=== PATIENT | male | born 1970 | race Caucasian/White ===

== ENCOUNTER 2018-11-15 04:32 | Observation (INO) | payer OTHER ==
[2018-11-15 05:07] LABS: ABSOLUTE BASOPHILS # (AUTO) 0.1 10^3/uL (0.0-0.2); ABSOLUTE EOSINOPHILS # (AUTO) 0.2 10^3/uL (0.0-0.6); ABSOLUTE LYMPHOCYTES (AUTO) 5.3 10^3/uL (0.5-4.7); ABSOLUTE MONOCYTES (AUTO) 1.6 10^3/uL (0.1-1.4); ABSOLUTE NEUT (AUTO) 6.9 10^3/uL (1.7-8.2); BASOPHILS % (AUTO) 0.7 % (0-2); EOSINOPHILS % (AUTO) 1.4 % (0-6); HEMATOCRIT 35.3 % (37.9-51.0); HEMOGLOBIN 12.2 g/dL (13.5-17.0); LYMPHOCYTES % (AUTO) 37.7 % (13-45); MEAN CORPUSCULAR HEMOGLOBIN 31.6 pg (27.0-33.4); MEAN CORPUSCULAR HGB CONC 34.6 g/dL (32.0-36.0); MEAN CORPUSCULAR VOLUME 91 fl (80-97); MONOCYTES % (AUTO) 11.6 % (3-13); PLATELET COUNT 427 10^3/uL (150-450); RED BLOOD COUNT 3.86 10^6/uL (4.35-5.55); RED CELL DISTRIBUTION WIDTH 13.7 % (11.5-14.0); SEGMENTED NEUTROPHILS % (AUTO) 48.6 % (42-78); TOTAL CELLS COUNTED % (AUTO) 100 %; WHITE BLOOD COUNT 14.2 10^3/uL (4.0-10.5)
[2018-11-15] MEDS ORDERED: NORMAL SALINE 1000 ML 1,000 ML IV ONE ×2 (05:33→10:10)
[2018-11-15 05:42] LABS: INTERNATIONAL RATION (INR) 1.01; PROTHROMBIN TIME 13.8 SEC (11.4-15.4)
[2018-11-15 05:43] LABS: PARTIAL THROMBOPLASTIN TIME 30.8 SEC (23.5-35.8)
[2018-11-15 05:45] LABS: ALANINE AMINOTRANSFERASE 34 U/L (21-72); ALBUMIN 3.5 g/dL (3.5-5.0); ALKALINE PHOSPHATASE 40 U/L (38-126); ANION GAP 9 (5-19); ASPARTATE AMINO TRANSFERASE 45 U/L (17-59); BILIRUBIN,DIRECT 0.3 mg/dL (0.0-0.4); BILIRUBIN,TOTAL 0.4 mg/dL (0.2-1.3); BLOOD UREA NITROGEN 18 mg/dL (7-20); CALCIUM 8.4 mg/dL (8.4-10.2); CARBON DIOXIDE 25 mmol/L (22-30); CHLORIDE 107 mmol/L (98-107); GLUCOSE 125 mg/dL (75-110); POTASSIUM 3.4 mmol/L (3.6-5.0); SODIUM 140.5 mmol/L (137-145)
--- NOTE | 2018-11-15 06:17 | RADIOLOGY REPORT (SQ) ---
EXAM DESCRIPTION: CT ABDOMEN PELVIS WITH IV CONTRAST COMPLETED DATE/TME: 11/15/2018 05:33 CLINICAL HISTORY: 47 years, Male, fell on FB, into rectum, removed now bleeding COMPARISON: None. TECHNIQUE: 445 Images stored on PACS. All CT scanners at this facility use dose modulation, iterative reconstruction, and/or weight based dosing when appropriate to reduce radiation dose to as low as reasonably achievable (ALARA). [facility]: Dose Right [facility]: CareDose [facility]: Dose Right [facility]: Teradose 4D [facility]: QuantiSense LIMITATIONS: None. FINDINGS: Limited evaluation of the lung bases is unremarkable. Osseous structures are grossly intact. Fatty infiltrative change to the liver. 10 mm cyst in the right hepatic lobe. Status post splenectomy. The adrenal glands, pancreas, kidneys are unremarkable. No evidence for bowel obstruction. However, there is a large amount of stool in the rectal vault with subjective rectal wall thickening. A few sigmoid diverticuli without CT evidence for diverticulitis. Subjective wall thickening of portions of the sigmoid colon is well. Appendix not well seen. No pericecal inflammation to suggest acute appendicitis. IMPRESSION: Large amount of stool in the rectal vault with subjective rectal wall thickening. Subjective wall thickening of portions of the sigmoid colon as well as scattered sigmoid diverticuli. No surrounding inflammatory change. No free air or free fluid. TECHNICAL DOCUMENTATION: Quality ID # 436: Final reports with documentation of one or more dose reduction techniques (e.g., Automated exposure control, adjustment of the mA and/or kV according to patient size, use of iterative reconstruction technique) copyright 2010 [employer]- All Rights Reserved
[2018-11-15 06:25] LABS: CREATINE KINASE MB 5.38 ng/mL (<4.55); TROPONIN I < 0.012 ng/mL
[2018-11-15] MEDS ORDERED: METRONIDAZOLE 500 MG/NS RTU 500 MG/100 ML RTUPB IV ONE (07:09)
[2018-11-15] MEDS ORDERED: CIPROFLOXACIN 400 MG/D5W RTU 400 MG/200 ML RTUPB IV ONE (07:09)
--- NOTE | 2018-11-15 07:37 | EKG REPORT ---
SEVERITY:- BORDERLINE ECG - SINUS RHYTHM BORDERLINE T WAVE ABNORMALITIES : Confirmed by: Taye Garcia MD 15-Nov-2018 07:37:02
--- NOTE | 2018-11-15 07:56 | ER Document Report ---
Entered by SHAISTA CHAVEZ SCRIBE 11/15/18 0545 Acting as scribe for:MONICO OBRIEN DO ED General - General Mode of Arrival: Medic Information source: Patient <MICAHMONICO - Last Filed: 11/15/18 07:56> <NEVILLE XAVIER - Last Filed: 11/15/18 11:27> - General Chief Complaint: Rectal Bleeding Stated Complaint: RECTAL BLEED Time Seen by Provider: 11/15/18 05:34 Notes: Patient is a 47 year old male who uses crack cocaine presents to the emergency department complaining of rectal pain and bleeding onset prior to arrival. Brooke ent states he fell and "something" went into his rectum. He states he was able to pull the object out and noted it to be "pointy and brown". He reports having persistent rectal pain and bleeding. Patient admits to smoking crack cocaine prior to falling. He denies intentionally placing anything in his rectum or anyone else doing so. He further denies chest pain, trouble breathing or vomiting. EMS reports approximately 250 mL of blood upon their arrival to the scene. Patient states he is on medications but reports being noncompliant. (SHAISTA CHAVEZ) Patient is a 47 year old male who uses crack cocaine presents to the emergency department complaining of rectal pain and bleeding onset prior to arrival. Patient states he fell and "something" went into his rectum. He states he was able to pull the object out and noted it to be "pointy and brown". He reports having persistent rectal pain and bleeding. Patient admits to smoking crack cocaine prior to falling. He denies intentionally placing anything in his rectum or anyone else doing so. He further denies chest pain, trouble breathing or vomiting. EMS reports approximately 250 mL of blood upon their arrival to the scene. Patient states he is on medications but reports being noncompliant. (MONICO OBRIEN) - Related Data Allergies/Adverse Reactions: No Known Allergies Allergy (Unverified 11/15/18 05:52) Past Medical History - General Information source: Patient - Social History Smoking Status: Current Every Day Smoker Cigarette use (# per day): Yes Chew tobacco use (# tins/day): No Smoking Education Provided: No Frequency of alcohol use: None Drug Abuse: Cocaine - smokes crack cocaine Family History: Reviewed & Not Pertinent Pulmonary Medical History: Reports: Hx COPD Psychiatric Medical History: Reports: Hx Anxiety, Hx Depression Past Surgical History: Reports: Hx Appendectomy - Immunizations Immunizations up to date: No - given in trauma bay <MONICO OBRIEN - Last Filed: 11/15/18 07:56> Review of Systems - Review of Systems Constitutional: No symptoms reported EENT: No symptoms reported Cardiovascular: No symptoms reported Respiratory: No symptoms reported Gastrointestinal: See HPI, Rectal bleeding Genitourinary: No symptoms reported Male Genitourinary: No symptoms reported Musculoskeletal: No symptoms reported Skin: No symptoms reported Hematologic/Lymphatic: No symptoms reported Neurological/Psychological: No symptoms reported -: Yes All other systems reviewed and negative <SUSIENUBIAMARIANOMONICO - Last Filed: 11/15/18 07:56> Physical Exam <MICAHMONICO - Last Filed: 11/15/18 07:56> - Vital signs Vitals: Temp Pulse Resp BP Pulse Ox 97.8 F 82 21 H 112/69 97 11/15/18 04:32 11/15/18 04:32 11/15/18 04:32 11/15/18 04:32 11/15/18 04:32 - Notes Notes: GENERAL: Alert, interacts well, diaphoretic pale. No acute distress. HEAD: Normocephalic, atraumatic. EYES: Pupils equal, round, and reactive to light. Extraocular movements intact. ENT: Oral mucosa moist, tongue midline. NECK: Full range of motion. Supple. Trachea midline. LUNGS: Clear to auscultation bilaterally, no wheezes, rales, or rhonchi. No respiratory distress. HEART: Regular rate and rhythm. No murmurs, gallops, or rubs. ABDOMEN: Soft, non-tender. Non-distended. Bowel sounds present in all 4 quadrants. No guarding, rigidity, or rebound. EXTREMITIES: Moves all 4 extremities spontaneously. No edema, radial and dorsalis pedis pulses 2/4 bilaterally. No cyanosis. NEUROLOGICAL: Alert and oriented x3. Normal speech. PSYCH: Normal affect, normal mood. SKIN: Warm, diaphoretic. Pale. RECTAL: No fissures or hemorrhoids externally or internally. Bright red blood in the rectum, small amount is expelled during examination. Tender to palpation. (SHAISTA CHAVEZ) GENERAL: Alert, interacts well, diaphoretic pale. No acute distress. HEAD: Normocephalic, atraumatic. EYES: Pupils equal, round, and reactive to light. Extraocular movements intact. ENT: Oral mucosa moist, tongue midline. NECK: Full range of motion. Supple. Trachea midline. LUNGS: Clear to auscultation bilaterally, no wheezes, rales, or rhonchi. No respiratory distress. HEART: Regular rate and rhythm. No murmurs, gallops, or rubs. ABDOMEN: Soft, non-tender. Non-distended. Bowel sounds present in all 4 quad rants. No guarding, rigidity, or rebound. EXTREMITIES: Moves all 4 extremities spontaneously. No edema, radial and dorsalis pedis pulses 2/4 bilaterally. No cyanosis. NEUROLOGICAL: Alert and oriented x3. Normal speech. PSYCH: Normal affect, normal mood. SKIN: Warm, diaphoretic. Pale. RECTAL: No fissures or hemorrhoids externally or internally. Bright red blood in the rectum, small amount is expelled during examination. Tender to palpation. (MONICO OBRIEN) Course - Laboratory Result Diagrams: 11/15/18 04:37 11/15/18 04:37 <MONICO OBRIEN - Last Filed: 11/15/18 07:56> - Laboratory Result Diagrams: 11/15/18 10:26 11/15/18 04:37 <NEVILLE XAVIER - Last Filed: 11/15/18 11:27> - Re-evaluation Re-evalutation: 11/15/18 07:05 Patient initially markedly hypotensive and diaphoretic as well as pale on examination however he was not tachycardic, this happened just after he had a large bloody bowel movement, resuscitated with a liter of normal saline is no longer hypotensive and has not developed any tachycardia. No further bloody bowel movements. Rectal examination did not reveal any acute laceration. CBC shows leukocytosis of 14.2 and hemoglobin low at 12.2, coags normal, CMP shows low sodium at 3.4, glucose elevated 125, CK and CK-MB are both elevated at 402 and 5.38, troponin is normal at 0.012, patient has been typed and screened but there is no indication for IV antibiotics at this time, CT scan of the abdomen pelvis was ordered to look for possible perforation from this rectal foreign body that may be causing this bleeding and it showed large amount of stool in the rectal vault with subjective rectal wall thickening, a few sigmoid divert iculi without CT evidence for diverticulitis, subjective wall thickening of portions of the sigmoid colon as well. Appendix not well seen, no pericecal inflammation to suggest acute appendicitis. Patient will be started on IV antibiotics, I have called the surgical [facility] to discuss the patient with the surgeon on-call. I will attempt to call him again in 15 minutes. Suspect patient may need endoscopy or other direct visualization to determine if there is a laceration in the wall of the bowel. 11/15/18 07:[address] Mcafrlane, states that he wants me to repeat the CAT scan of the abdomen pelvis with rectal contrast rather than oral or IV contrast in case there is a small perforation we are missing. He will come and evaluate the patient. 11/15/18 07:[address] scan is completed Dr. Mcfarlane will review with the radiologist and will discuss final disposition with Dr. Xavier. Patient has been signed out to Dr. Xavier (MONICO OBRIEN) 11/15/18 10:24 Abdomen/Pelvis CT 11/15/18 07:13 IMPRESSION: No evidence of rectal perforation or residual foreign body. Consulted with surgeon after CT scan. He recommends admitting to the hospitalist service and he will continue to follow. I have ordered a repeat CBC. Patient remained stable. Antibiotics have been given. 11/15/18 11:[address] Moyer for hospital admission at this time. Repeat CBC did show dropping hemoglobin and hematocrit. Repeat CT scan did not show any signs of perforation of the rectum or colon. (NEVILLE XAVIER) - Vital Signs Vital signs: Temp Pulse Resp BP Pulse Ox 97.8 F 82 17 103/60 99 11/15/18 04:32 11/15/18 04:32 11/15/18 08:00 11/15/18 08:00 11/15/18 08:00 - Laboratory Laboratory results interpreted by me: 11/15/18 11/15/18 11/15/18 04:37 04:37 04:37 WBC 14.2 H RBC 3.86 L Hgb 12.2 L Hct 35.3 L Absolute Neutrophils Absolute Lymphocytes 5.3 H Absolute Monocytes 1.6 H Potassium 3.4 L Glucose 125 H Creatine Kinase 402 H CK-MB (CK-2) Total Protein 6.0 L 11/15/18 11/15/18 04:37 10:26 WBC 16.6 H RBC 3.12 L Hgb 9.9 L D Hct 28.7 L Absolute Neutrophils 9.4 H Absolute Lymphocytes 5.7 H Absolute Monocytes Potassium Glucose Creatine Kinase CK-MB (CK-2) 5.38 H Total Protein - EKG Interpretation by Me Additional EKG results interpreted by me: 11/15/18 07:07 EKG shows sinus rhythm at a rate of 71, left axis deviation, normal intervals, no ST segment elevations or depressions, T wave flattening noted in lead III, V5 and V6 as well as aVL per my interpretation. (MONICO OBRIEN) Discharge <MONICO OBRIEN - Last Filed: 11/15/18 07:56> - Discharge Admitting Provider: Dylan (Hospitalist) Unit Admitted: Medical Floor <NEVILLE XAVIER - Last Filed: 11/15/18 11:27> - Discharge Clinical Impression: Rectal bleeding, Colitis Condition: Fair Disposition: ADMITTED INPATIENT I personally performed the services described in the documentation, reviewed and edited the documentation which was dictated to the scribe in my presence, and it accurately records my words and actions.
--- NOTE | 2018-11-15 09:11 | RADIOLOGY REPORT (SQ) ---
EXAM DESCRIPTION: CT ABD/PELVIS ORAL ONLY COMPLETED DATE/TIME: 11/15/2018 8:41 am REASON FOR STUDY: Rectal contrast please, not oral COMPARISON: Earlier the same day. TECHNIQUE: CT scan of the abdomen and pelvis performed with rectal contrast and no intravenous contr ast. Images reviewed with lung, soft tissue, and bone windows. Reconstructed coronal and sagittal MPR images reviewed. All images stored on PACS. All CT scanners at this facility use dose modulation, iterative reconstruction, and/or weight based d osing when appropriate to reduce radiation dose to as low as reasonably achievable (ALARA). [facility]: Dose Right [facility]: CareDose [facility]: Dose Right [facility]: Teradose 4D [facility]: [employer] RADIATION DOSE: CT Rad equipment meets quality standard of care and radiation dose reduction techniq ues were employed. CTDIvol: 11.4 mGy. DLP: 709 mGy-cm. mGy. LIMITATIONS: Artifact from contrast in the urinary bladder. FINDINGS: Contrast refluxed in to the mid transverse colon. There is no evidence of extravasation i n the rectum. No residual foreign body identified. IMPRESSION: No evidence of rectal perforation or residual foreign body. TECHNICAL DOCUMENTATION: JOB ID: [id number] Quality ID # 436: Final reports with documentation of one or more dose reduction techniques (e.g., Au tomated exposure control, adjustment of the mA and/or kV according to patient size, use of iterative reconstruction technique) 2010 [employer]- All Rights Reserved Reading location - IP/workstation name: [email or web address]
--- NOTE | 2018-11-15 10:36 | PDOC CONSULTATION ---
Consultation Consult Date: 11/15/18 Provider Consulted: KEILA TAYLOR Consult reason:: rectal injury after foreign body insertion History of Present Illness History of Present Illness: JYOTI YANCEY is a 47 year old male, who denies being homosexual and give a hx of heavy crak/cocaine smoking during the past 2 days. According to the patient, he does not recall when (last night or yesterday morning) a metal pointed foreign body approximately 6" long penetrated his rectum. He denies being raped. he pulled the foreign body out of his rectum and threw it away. Shortly after, he noticed blood together with clots per rectum and passed multiple bouts of hematochetia. He denies abdominal pain, N/V, chills, cold sweats, or fever. Past Medical History Cardiac Medical History: Reports: Hyperlipidema Pulmonary Medical History: Reports: Chronic Obstructive Pulmonary Disease (COPD) Psychiatric Medical History: Reports: Depression Past Surgical History Past Surgical History: Reports: Appendectomy Social History Smoking Status: Current Every Day Smoker Family History Family History: Reviewed & Not Pertinent Parental Family History Reviewed: No Children Family History Reviewed: No Sibling(s) Family History Reviewed.: No Medication/Allergy Home Medications: No Home Medications 11/15/18 Allergies/Adverse Reactions: No Known Allergies Allergy (Unverified 11/15/18 05:52) Physical Exam Vital Signs: Temp Pulse Resp BP Pulse Ox 97.8 F 82 17 103/60 99 11/15/18 04:32 11/15/18 04:32 11/15/18 08:00 11/15/18 08:00 11/15/18 08:00 Intake & Output 11/14/18 11/15/18 11/16/18 06:59 06:59 06:59 Intake Total 1000 300 Balance 1000 300 Weight 81.6 kg General appearance: PRESENT: no acute distress, other - sleepy but arousable and appropriate during interview Eye exam: PRESENT: EOMI Mouth exam: PRESENT: neck supple Neck exam: PRESENT: full ROM Respiratory exam: PRESENT: clear to auscultation andrez Cardiovascular exam: PRESENT: RRR GI/Abdominal exam: PRESENT: normal bowel sounds, soft, other - old scars in the RLQ and midline Rectal exam: PRESENT: deferred, other - no tears of the perianum or anoderm identifed, perianum covered with small amount of blood Extremities exam: PRESENT: full ROM Musculoskeletal exam: PRESENT: full ROM Results Laboratory Results: 11/15/18 04:37 11/15/18 04:37 11/15/18 11/15/18 11/15/18 04:37 04:37 04:37 WBC 14.2 H RBC 3.86 L Hgb 12.2 L Hct 35.3 L MCV 91 MCH 31.6 MCHC 34.6 RDW 13.7 Plt Count 427 Seg Neutrophils % 48.6 Lymphocytes % 37.7 Monocytes % 11.6 Eosinophils % 1.4 Basophils % 0.7 Absolute Neutrophils 6.9 Absolute Lymphocytes 5.3 H Absolute Monocytes 1.6 H Absolute Eosinophils 0.2 Absolute Basophils 0.1 Sodium 140.5 Potassium 3.4 L Chloride 107 Carbon Dioxide 25 Anion Gap 9 BUN 18 Creatinine 0.93 Est GFR ( Amer) > 60 Est GFR (Non-Af Amer) > 60 Glucose 125 H Calcium 8.4 Total Bilirubin 0.4 AST 45 ALT 34 Alkaline Phosphatase 40 Total Protein 6.0 L Albumin 3.5 Blood Type A POSITIVE Antibody Screen NEGATIVE 11/15/18 11/15/18 04:37 04:37 Creatine Kinase 402 H CK-MB (CK-2) 5.38 H Troponin I < 0.012 Impressions: Abdomen/Pelvis CT 11/15/18 07:13 IMPRESSION: No evidence of rectal perforation or residual foreign body. Assessment & Plan - Diagnosis (1) Rectal injury Qualifiers: Encounter type: initial encounter Qualified Code(s): S36.60XA - Unspecified injury of rectum, initial encounter Is this a current diagnosis for this admission?: Yes (2) Rectal hemorrhage Is this a current diagnosis for this admission?: Yes - Plan Summary Plan Summary: A/ 47 y/o male with a hx of a metal, pointed foreign body, 6 inches long which penetrated his rectum sometimes during the past 24 hours Heavy use of smoked crack/cocaine during past 24 hrs with impaired recollection of events Patient is very sleepy, but arousable No hx of abdominal pain CT A/P with IV contrast and repeated CT A/P with rectal contrast only do not show evidence of any perforation either intraperitoneal or extraperitoneal of the rectosigmoid (no free air and no contrast extravasation) WBC 14, most likely due to the use of crack/cocaine Physical exam shows an intact perianum and anoderm covered with moderate amount of blood; no obvious tear of the anoderm identified P/ Patient to be admitted by the Hosptalist service becauase of the recent large use of crack/cocaine NPO IVF NS 125 mL/Hr Conservative management Continue Levaquin/Flagyl Repeat H/H today day and BID to monitor extent bleeding Recommend no manipulation or instrumentation of the rectum to avoid possible worsening of the rectosigmoid partial injury Possible discharge in 24-48 hours when WBC normalized and rectal bleeding subsides.
[2018-11-15 10:38] LABS: ABSOLUTE BASOPHILS # (AUTO) 0.1 10^3/uL (0.0-0.2); ABSOLUTE EOSINOPHILS # (AUTO) 0.1 10^3/uL (0.0-0.6); ABSOLUTE LYMPHOCYTES (AUTO) 5.7 10^3/uL (0.5-4.7); ABSOLUTE MONOCYTES (AUTO) 1.2 10^3/uL (0.1-1.4); ABSOLUTE NEUT (AUTO) 9.4 10^3/uL (1.7-8.2); BASOPHILS % (AUTO) 0.6 % (0-2); EOSINOPHILS % (AUTO) 0.8 % (0-6); HEMATOCRIT 28.7 % (37.9-51.0); LYMPHOCYTES % (AUTO) 34.7 % (13-45); MEAN CORPUSCULAR HEMOGLOBIN 31.6 pg (27.0-33.4); MEAN CORPUSCULAR HGB CONC 34.3 g/dL (32.0-36.0); MEAN CORPUSCULAR VOLUME 92 fl (80-97); MONOCYTES % (AUTO) 7.2 % (3-13); PLATELET COUNT 361 10^3/uL (150-450); RED BLOOD COUNT 3.12 10^6/uL (4.35-5.55); RED CELL DISTRIBUTION WIDTH 13.6 % (11.5-14.0); SEGMENTED NEUTROPHILS % (AUTO) 56.7 % (42-78); TOTAL CELLS COUNTED % (AUTO) 100 %; WHITE BLOOD COUNT 16.6 10^3/uL (4.0-10.5)
[2018-11-15] MEDS ORDERED: NORMAL SALINE 1000 ML 1,000 ML IV PRN (10:39)
[2018-11-15 10:41] LABS: HEMOGLOBIN 9.9 g/dL (13.5-17.0)
[2018-11-15] MEDS ORDERED: ACETAMINOPHEN 325 MG TABLET PO PRN (12:37)
[2018-11-15] MEDS ORDERED: ONDANSETRON HCL INJ/PF 4 MG/2 ML SDV IV PRN (12:37)
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
[2018-11-15] MEDS ORDERED: POTASSIUM CHLORIDE 10 MEQ CAPSULE.ER PO ONE (13:30)
[2018-11-15] MEDS: NORMAL SALINE 1000 ML 1,000 ML IV PRN (13:59)
[2018-11-15] MEDS ORDERED: METRONIDAZOLE 500 MG/NS RTU 500 MG/100 ML RTUPB IV SCH (14:00)
[2018-11-15] MEDS: NICOTINE 21 MG/24 HR PATCH.TD24 TD SCH (14:32)
[2018-11-15 17:27] LABS: APPEARANCE,URINE CLEAR; BILIRUBIN,URINE NEGATIVE (NEGATIVE); COLOR,URINE YELLOW; GLUCOSE, URINE NEGATIVE (NEGATIVE); KETONES,URINE TRACE mg/dL (NEGATIVE); LEUKOCYTE ESTERASE,URINE TRACE (NEGATIVE); NITRITE,URINE NEGATIVE (NEGATIVE); PROTEIN,URINE NEGATIVE (NEGATIVE); UROBILINOGEN,URINE NEGATIVE mg/dL (<2.0)
[2018-11-15 17:29] LABS: URINE SPECIFIC GRAVITY > 1.060
[2018-11-15] MEDS: METRONIDAZOLE 500 MG/NS RTU 500 MG/100 ML RTUPB IV SCH (17:38)
[2018-11-15 17:41] LABS: URINE AMPHETAMINES SCREEN NEGATIVE; URINE BARBITURATES SCREEN NEGATIVE; URINE BENZODIAZEPINES SCREEN NEGATIVE; URINE MARIJUANA (THC) SCREEN NEGATIVE; URINE METHADONE SCREEN NEGATIVE; URINE PHENCYCLIDINE SCREEN NEGATIVE
[2018-11-15 18:57] LABS: HEMATOCRIT 26.8 % (37.9-51.0); HEMOGLOBIN 9.2 g/dL (13.5-17.0); MEAN CORPUSCULAR HEMOGLOBIN 31.5 pg (27.0-33.4); MEAN CORPUSCULAR HGB CONC 34.2 g/dL (32.0-36.0); MEAN CORPUSCULAR VOLUME 92 fl (80-97); PLATELET COUNT 350 10^3/uL (150-450); RED BLOOD COUNT 2.91 10^6/uL (4.35-5.55); RED CELL DISTRIBUTION WIDTH 13.6 % (11.5-14.0); WHITE BLOOD COUNT 13.6 10^3/uL (4.0-10.5)
[2018-11-15] MEDS: FAMOTIDINE INJ/PF 20 MG/2 ML SDV IV SCH (21:55)
[2018-11-15] MEDS: CIPROFLOXACIN 400 MG/D5W RTU 400 MG/200 ML RTUPB IV SCH (21:55)
[2018-11-15] MEDS ORDERED: CIPROFLOXACIN 400 MG/D5W RTU 400 MG/200 ML RTUPB IV SCH (22:00)
[2018-11-16] MEDS: METRONIDAZOLE 500 MG/NS RTU 500 MG/100 ML RTUPB IV SCH ×4 (00:31→17:25)
[2018-11-16] MEDS: NORMAL SALINE 1000 ML 1,000 ML IV PRN (04:19)
[2018-11-16] MEDS ORDERED: GLUCAGON,HUMAN RECOMB 1 MG INJ SUBCUT PRN (08:54)
[2018-11-16] MEDS ORDERED: DEXTROSE 40% GEL 15 GM TUBE PO PRN ×2 (08:54)
[2018-11-16] MEDS ORDERED: DEXTROSE 50%-WATER 25 GM/50 ML DISP.SYRIN IV PRN ×2 (08:54)
[2018-11-16 09:21] LABS: ABSOLUTE BASOPHILS # (AUTO) 0.1 10^3/uL (0.0-0.2); ABSOLUTE EOSINOPHILS # (AUTO) 0.3 10^3/uL (0.0-0.6); ABSOLUTE LYMPHOCYTES (AUTO) 5.6 10^3/uL (0.5-4.7); ABSOLUTE MONOCYTES (AUTO) 1.1 10^3/uL (0.1-1.4); ABSOLUTE NEUT (AUTO) 5.3 10^3/uL (1.7-8.2); BASOPHILS % (AUTO) 0.6 % (0-2); EOSINOPHILS % (AUTO) 2.2 % (0-6); HEMATOCRIT 26.2 % (37.9-51.0); HEMOGLOBIN 9.1 g/dL (13.5-17.0); LYMPHOCYTES % (AUTO) 45.3 % (13-45); MEAN CORPUSCULAR HEMOGLOBIN 32.1 pg (27.0-33.4); MEAN CORPUSCULAR HGB CONC 34.7 g/dL (32.0-36.0); MEAN CORPUSCULAR VOLUME 92 fl (80-97); MONOCYTES % (AUTO) 9.2 % (3-13); PLATELET COUNT 360 10^3/uL (150-450); RED BLOOD COUNT 2.83 10^6/uL (4.35-5.55); RED CELL DISTRIBUTION WIDTH 13.6 % (11.5-14.0); SEGMENTED NEUTROPHILS % (AUTO) 42.7 % (42-78); TOTAL CELLS COUNTED % (AUTO) 100 %; WHITE BLOOD COUNT 12.4 10^3/uL (4.0-10.5)
[2018-11-16 09:24] LABS: INTERNATIONAL RATION (INR) 1.02; PROTHROMBIN TIME 13.9 SEC (11.4-15.4)
--- NOTE | 2018-11-16 09:25 | PDOC PROGRESS REPORT ---
Subjective Progress Note for:: 11/16/18 Subjective:: no c/o, no abdominal or rectal pain, no nausea or vomiting, flatus Reason For Visit: RECTAL BLEED Physical Exam Vital Signs: Temp Pulse Resp BP Pulse Ox 97.9 F 72 14 112/64 99 11/16/18 07:33 11/16/18 07:33 11/16/18 07:33 11/16/18 07:33 11/16/18 07:33 Intake & Output 11/15/18 11/16/18 11/17/18 06:59 06:59 06:59 Intake Total 1000 2800 Output Total 250 Balance 1000 2550 Weight 81.6 kg 76.9 kg General appearance: PRESENT: no acute distress Respiratory exam: PRESENT: clear to auscultation andrez Cardiovascular exam: PRESENT: RRR GI/Abdominal exam: PRESENT: soft Rectal exam: PRESENT: other - no evidence of perianal tear or bleeding noted Results Laboratory Results: 11/15/18 18:12 11/15/18 04:37 11/15/18 11/15/18 11/15/18 10:26 17:00 18:12 WBC 16.6 H 13.6 H RBC 3.12 L 2.91 L Hgb 9.9 L D 9.2 L Hct 28.7 L 26.8 L MCV 92 92 MCH 31.6 31.5 MCHC 34.3 34.2 RDW 13.6 13.6 Plt Count 361 350 Seg Neutrophils % 56.7 Lymphocytes % 34.7 Monocytes % 7.2 Eosinophils % 0.8 Basophils % 0.6 Absolute Neutrophils 9.4 H Absolute Lymphocytes 5.7 H Absolute Monocytes 1.2 Absolute Eosinophils 0.1 Absolute Basophils 0.1 Urine Color YELLOW Urine Appearance CLEAR Urine pH 5.0 Ur Specific [place] > 1.060 Urine Protein NEGATIVE Urine Glucose (UA) NEGATIVE Urine Ketones TRACE H Urine Blood NEGATIVE Urine Nitrite NEGATIVE Ur Leukocyte Esterase TRACE H Urine WBC (Auto) 2 Urine RBC (Auto) 1 11/15/18 11/15/18 11/15/18 04:37 04:37 13:28 Creatine Kinase 402 H 244 H CK-MB (CK-2) 5.38 H Troponin I < 0.012 11/15/18 11/15/18 11/15/18 13:28 18:12 18:21 Creatine Kinase 172 H CK-MB (CK-2) 3.67 3.15 Troponin I 11/16/18 11/16/18 00:44 00:44 Creatine Kinase 137 CK-MB (CK-2) 2.34 Troponin I Impressions: Abdomen/Pelvis CT 11/15/18 07:13 IMPRESSION: No evidence of rectal perforation or residual foreign body. Assessment & Plan - Diagnosis (1) Rectal injury Qualifiers: Encounter type: initial encounter Qualified Code(s): S36.60XA - Unspecified injury of rectum, initial encounter Is this a current diagnosis for this admission?: Yes (2) Rectal hemorrhage Is this a current diagnosis for this admission?: Yes - Plan Summary Plan Summary: A/ HD #2 for admission secondary to rectal injury due to foreign body No contrast extravasation on CT lower GI yesterday, no free intraperitoneal or extraperitoneal air WBC pending today Abdomen soft Perianum normal, no blood noted on physical exam Flatus present no stool P/ No instrumentation planned to avoid transforming a partial rectosigmoid tear into a complete tear Continue NPO except for ice chips until bowel function returns (stools) Miralax and Colace Monitoring WBC daily
[2018-11-16 09:35] LABS: ALANINE AMINOTRANSFERASE 29 U/L (21-72); ALBUMIN 2.9 g/dL (3.5-5.0); ALKALINE PHOSPHATASE 35 U/L (38-126); ANION GAP 6 (5-19); ASPARTATE AMINO TRANSFERASE 16 U/L (17-59); BILIRUBIN,DIRECT 0.2 mg/dL (0.0-0.4); BILIRUBIN,TOTAL 0.5 mg/dL (0.2-1.3); BLOOD UREA NITROGEN 9 mg/dL (7-20); CALCIUM 8.4 mg/dL (8.4-10.2); CARBON DIOXIDE 27 mmol/L (22-30); CHLORIDE 108 mmol/L (98-107); GLUCOSE 84 mg/dL (75-110); POTASSIUM 4.3 mmol/L (3.6-5.0); SODIUM 141.2 mmol/L (137-145); TRIGLYCERIDES 164 mg/dL (<150)
[2018-11-16] MEDS: NICOTINE 21 MG/24 HR PATCH.TD24 TD SCH (09:37)
[2018-11-16] MEDS: CIPROFLOXACIN 400 MG/D5W RTU 400 MG/200 ML RTUPB IV SCH ×2 (09:38→22:59)
[2018-11-16] MEDS: FAMOTIDINE INJ/PF 20 MG/2 ML SDV IV SCH ×2 (09:38→22:59)
[2018-11-16 09:47] LABS: DIRECT LDL 101 mg/dL (<100)
[2018-11-16 09:48] LABS: VLDL CHOLESTEROL 32.8 mg/dL (10-31)
[2018-11-16] MEDS: DOCUSATE SODIUM 100 MG CAPSULE PO SCH ×2 (09:48→17:25)
[2018-11-16] MEDS: POLYETHYLENE GLYCOL 3350 POWDER 17 GM/1 PACKET PO SCH ×2 (09:48→17:25)
[2018-11-17] MEDS: NORMAL SALINE 1000 ML 1,000 ML IV PRN (00:05)
[2018-11-17] MEDS: METRONIDAZOLE 500 MG/NS RTU 500 MG/100 ML RTUPB IV SCH ×4 (00:06→19:03)
[2018-11-17 06:58] LABS: ABSOLUTE BASOPHILS # (AUTO) 0.1 10^3/uL (0.0-0.2); ABSOLUTE EOSINOPHILS # (AUTO) 0.3 10^3/uL (0.0-0.6); ABSOLUTE MONOCYTES (AUTO) 1.1 10^3/uL (0.1-1.4); ABSOLUTE NEUT (AUTO) 3.9 10^3/uL (1.7-8.2); BASOPHILS % (AUTO) 0.8 % (0-2); EOSINOPHILS % (AUTO) 2.7 % (0-6); HEMATOCRIT 25.6 % (37.9-51.0); HEMOGLOBIN 8.9 g/dL (13.5-17.0); LYMPHOCYTES % (AUTO) 48.7 % (13-45); MEAN CORPUSCULAR HEMOGLOBIN 31.7 pg (27.0-33.4); MEAN CORPUSCULAR HGB CONC 34.6 g/dL (32.0-36.0); MEAN CORPUSCULAR VOLUME 92 fl (80-97); MONOCYTES % (AUTO) 10.4 % (3-13); PLATELET COUNT 402 10^3/uL (150-450); RED CELL DISTRIBUTION WIDTH 13.4 % (11.5-14.0); SEGMENTED NEUTROPHILS % (AUTO) 37.4 % (42-78); TOTAL CELLS COUNTED % (AUTO) 100 %; WHITE BLOOD COUNT 10.3 10^3/uL (4.0-10.5)
--- NOTE | 2018-11-17 10:01 | PDOC PROGRESS REPORT ---
Subjective Progress Note for:: 11/17/18 Subjective:: 47-year-old male status post rectal trauma. His last bloody bowel movement was last night. He has no rectal pain, abdominal pain, nausea, vomiting, or other difficulty. Reason For Visit: RECTAL BLEED Physical Exam Vital Signs: Temp Pulse Resp BP Pulse Ox 97.6 F 69 16 120/61 100 11/16/18 20:00 11/16/18 20:00 11/16/18 20:00 11/16/18 20:00 11/16/18 20:00 Intake & Output 11/16/18 11/17/18 11/18/18 06:59 06:59 06:59 Intake Total 2800 2520 Output Total 250 1200 Balance 2550 1320 Weight 76.9 kg 76.9 kg General appearance: PRESENT: no acute distress, cooperative Head exam: PRESENT: atraumatic, normocephalic Eye exam: PRESENT: EOMI, PERRLA. ABSENT: scleral icterus Mouth exam: PRESENT: moist, neck supple Neck exam: ABSENT: meningismus, tenderness, thyromegaly, tracheal deviation Respiratory exam: PRESENT: unlabored. ABSENT: tachypnea, wheezes Cardiovascular exam: PRESENT: RRR Pulses: PRESENT: normal radial pulses Vascular exam: ABSENT: pallor GI/Abdominal exam: PRESENT: soft. ABSENT: distended, firm, guarding, rebound, rigid, tenderness Rectal exam: PRESENT: deferred Extremities exam: ABSENT: clubbing Musculoskeletal exam: ABSENT: deformity Neurological exam: PRESENT: alert, awake, oriented to person, oriented to place, oriented to time, oriented to situation, CN II-XII grossly intact. ABSENT: motor sensory deficit Psychiatric exam: ABSENT: agitated, anxious, depressed Focused psych exam: ABSENT: delusional Skin exam: ABSENT: cyanosis, erythema, jaundice Results Laboratory Results: 11/17/18 06:02 11/16/18 08:23 11/16/18 11/17/18 10:38 06:02 WBC 10.3 RBC 2.80 L Hgb 8.9 L Hct 25.6 L MCV 92 MCH 31.7 MCHC 34.6 RDW 13.4 Plt Count 402 Seg Neutrophils % 37.4 L Lymphocytes % 48.7 H Monocytes % 10.4 Eosinophils % 2.7 Basophils % 0.8 Absolute Neutrophils 3.9 Absolute Lymphocytes 5.0 H Absolute Monocytes 1.1 Absolute Eosinophils 0.3 Absolute Basophils 0.1 Ammonia < 8.7 L 11/15/18 11/15/18 11/15/18 04:37 04:37 13:28 Creatine Kinase 402 H 244 H CK-MB (CK-2) 5.38 H Troponin I < 0.012 11/15/18 11/15/18 11/15/18 13:28 18:12 18:21 Creatine Kinase 172 H CK-MB (CK-2) 3.67 3.15 Troponin I 11/16/18 11/16/18 00:44 00:44 Creatine Kinase 137 CK-MB (CK-2) 2.34 Troponin I Impressions: Abdomen/Pelvis CT 11/15/18 07:13 IMPRESSION: No evidence of rectal perforation or residual foreign body. Assessment & Plan - Diagnosis (1) Rectal injury Qualifiers: Encounter type: subsequent encounter Qualified Code(s): S36.60XD - Unspecif ied injury of rectum, subsequent encounter Is this a current diagnosis for this admission?: Yes - Plan Summary Plan Summary: There is a 47-year-old male status post rectal injury via foreign object. The patient had a small amount of bleeding last night. The patient's rectal CT scan is without obvious perirectal injury. His abdominal exam is completely benign. He has no rectal pain. I will advance his diet today, and monitor for further bleeding. If the patient progresses well, anticipate discharge home soon. If further bleeding occurs, he may require examination under anesthesia. Will follow closely.
[2018-11-17] MEDS: NICOTINE 21 MG/24 HR PATCH.TD24 TD SCH (10:58)
[2018-11-17] MEDS: FAMOTIDINE INJ/PF 20 MG/2 ML SDV IV SCH ×2 (10:59→21:37)
[2018-11-17] MEDS: CIPROFLOXACIN 400 MG/D5W RTU 400 MG/200 ML RTUPB IV SCH ×2 (10:59→21:36)
[2018-11-17] MEDS: POLYETHYLENE GLYCOL 3350 POWDER 17 GM/1 PACKET PO SCH ×3 (10:59→19:03)
[2018-11-17] MEDS: DOCUSATE SODIUM 100 MG CAPSULE PO SCH ×2 (11:35→19:04)
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
[2018-11-18] MEDS: METRONIDAZOLE 500 MG/NS RTU 500 MG/100 ML RTUPB IV SCH ×4 (00:22→17:21)
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
[2018-11-18] MEDS: DOCUSATE SODIUM 100 MG CAPSULE PO SCH ×2 (09:32→17:24)
[2018-11-18] MEDS: POLYETHYLENE GLYCOL 3350 POWDER 17 GM/1 PACKET PO SCH ×2 (09:32→17:24)
[2018-11-18] MEDS: CIPROFLOXACIN 400 MG/D5W RTU 400 MG/200 ML RTUPB IV SCH ×2 (09:32→21:24)
[2018-11-18] MEDS: FAMOTIDINE INJ/PF 20 MG/2 ML SDV IV SCH ×2 (09:32→21:24)
[2018-11-18] MEDS: NICOTINE 21 MG/24 HR PATCH.TD24 TD SCH (09:32)
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
[2018-11-19] MEDS: METRONIDAZOLE 500 MG/NS RTU 500 MG/100 ML RTUPB IV SCH ×2 (02:50→05:11)
[2018-11-19 07:26] LABS: ABSOLUTE BASOPHILS # (AUTO) 0.2 10^3/uL (0.0-0.2); ABSOLUTE EOSINOPHILS # (AUTO) 0.4 10^3/uL (0.0-0.6); ABSOLUTE LYMPHOCYTES (AUTO) 5.6 10^3/uL (0.5-4.7); ABSOLUTE MONOCYTES (AUTO) 1.6 10^3/uL (0.1-1.4); ABSOLUTE NEUT (AUTO) 6.4 10^3/uL (1.7-8.2); BASOPHILS % (AUTO) 1.1 % (0-2); EOSINOPHILS % (AUTO) 2.7 % (0-6); HEMATOCRIT 26.9 % (37.9-51.0); HEMOGLOBIN 9.3 g/dL (13.5-17.0); LYMPHOCYTES % (AUTO) 39.9 % (13-45); MEAN CORPUSCULAR HEMOGLOBIN 32.3 pg (27.0-33.4); MEAN CORPUSCULAR HGB CONC 34.6 g/dL (32.0-36.0); MEAN CORPUSCULAR VOLUME 94 fl (80-97); MONOCYTES % (AUTO) 11.1 % (3-13); PLATELET COUNT 513 10^3/uL (150-450); RED BLOOD COUNT 2.87 10^6/uL (4.35-5.55); RED CELL DISTRIBUTION WIDTH 13.8 % (11.5-14.0); SEGMENTED NEUTROPHILS % (AUTO) 45.2 % (42-78); TOTAL CELLS COUNTED % (AUTO) 100 %; WHITE BLOOD COUNT 14.1 10^3/uL (4.0-10.5)
[2018-11-19 09:23] VITALS: BP 127/68
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
== END 2018-11-19 11:54 | disposition home or self-care (01) ==
LOC: ER 04:32 → EH 11:36 → INTOOBSV 11:36 → 5 14:07
PROVIDERS: ADMIT Internal Medicine; ATTEND Internal Medicine
DX: S36.60XA Unspecified injury of rectum, initial encounter (principal); K62.5 Hemorrhage of anus and rectum; E78.5 Hyperlipidemia, unspecified; J44.9 Chronic obstructive pulmonary disease, unspecified; F32.9 Major depressive disorder, single episode, unspecified; K52.9 Noninfective gastroenteritis and colitis, unspecified; F17.210 Nicotine dependence, cigarettes, uncomplicated; F14.10 Cocaine abuse, uncomplicated; M62.82 Rhabdomyolysis; Z91.14 Patient's other noncompliance with medication regimen
CPT/HCPCS: 93005; 99285; 96361; 96365; 96366; 96368; 86900; 86901; 36415 ×4; 87040; 82553 ×2; 86850; 82140; 82550 ×2; 83735; 85025 ×4; 85610 ×2; 85730; 80053 ×2; 81001; 84484; 80307; 80061; 74176; 74177; 93010; G0378 ×6; J3490 ×5; J7030 ×3; J0744 ×4; S0028 ×4

== ENCOUNTER 2019-01-25 15:59 | Emergency (ER) | payer OTHER ==
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
[2019-01-25] MEDS ORDERED: ACETAMINOPHEN 325 MG TABLET PO ONE (18:53)
[2019-01-25 19:06] LABS: ABSOLUTE BASOPHILS # (AUTO) 0.2 10^3/uL (0.0-0.2); ABSOLUTE EOSINOPHILS # (AUTO) 0.3 10^3/uL (0.0-0.6); ABSOLUTE LYMPHOCYTES (AUTO) 3.9 10^3/uL (0.5-4.7); ABSOLUTE MONOCYTES (AUTO) 1.6 10^3/uL (0.1-1.4); ABSOLUTE NEUT (AUTO) 9.5 10^3/uL (1.7-8.2); BASOPHILS % (AUTO) 1.4 % (0-2); EOSINOPHILS % (AUTO) 2.2 % (0-6); HEMATOCRIT 37.9 % (37.9-51.0); HEMOGLOBIN 12.4 g/dL (13.5-17.0); MEAN CORPUSCULAR HEMOGLOBIN 26.6 pg (27.0-33.4); MEAN CORPUSCULAR HGB CONC 32.6 g/dL (32.0-36.0); MEAN CORPUSCULAR VOLUME 82 fl (80-97); MONOCYTES % (AUTO) 10.3 % (3-13); PLATELET COUNT 653 10^3/uL (150-450); RED BLOOD COUNT 4.64 10^6/uL (4.35-5.55); RED CELL DISTRIBUTION WIDTH 16.3 % (11.5-14.0); SEGMENTED NEUTROPHILS % (AUTO) 61.1 % (42-78); TOTAL CELLS COUNTED % (AUTO) 100 %; WHITE BLOOD COUNT 15.5 10^3/uL (4.0-10.5)
[2019-01-25 19:10] LABS: INTERNATIONAL RATION (INR) 0.98
[2019-01-25 19:11] LABS: PARTIAL THROMBOPLASTIN TIME 30.4 SEC (23.5-35.8)
[2019-01-25 19:27] LABS: ALBUMIN 4.4 g/dL (3.5-5.0); ALKALINE PHOSPHATASE 53 U/L (38-126); ANION GAP 9 (5-19); ASPARTATE AMINO TRANSFERASE 30 U/L (17-59); BILIRUBIN,DIRECT 0.2 mg/dL (0.0-0.4); BILIRUBIN,TOTAL 0.4 mg/dL (0.2-1.3); BLOOD UREA NITROGEN 12 mg/dL (7-20); CALCIUM 9.6 mg/dL (8.4-10.2); CARBON DIOXIDE 26 mmol/L (22-30); CHLORIDE 104 mmol/L (98-107); GLUCOSE 113 mg/dL (75-110); POTASSIUM 3.8 mmol/L (3.6-5.0); TOTAL PROTEIN 7.3 g/dL (6.3-8.2)
[2019-01-25 19:32] LABS: ALCOHOL < 10 mg/dL (NONE DETECTED)
[2019-01-25 19:44] LABS: APPEARANCE,URINE CLEAR; BILIRUBIN,URINE NEGATIVE (NEGATIVE); COLOR,URINE YELLOW; GLUCOSE, URINE NEGATIVE (NEGATIVE); KETONES,URINE NEGATIVE (NEGATIVE); LEUKOCYTE ESTERASE,URINE NEGATIVE (NEGATIVE); NITRITE,URINE NEGATIVE (NEGATIVE); PROTEIN,URINE 30 mg/dL (NEGATIVE); URINE SPECIFIC GRAVITY 1.014; UROBILINOGEN,URINE NEGATIVE mg/dL (<2.0)
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
[2019-01-25 20:06] LABS: URINE AMPHETAMINES SCREEN NEGATIVE; URINE BARBITURATES SCREEN NEGATIVE; URINE BENZODIAZEPINES SCREEN NEGATIVE; URINE COCAINE SCREEN UNCONFIRMED POSITIVE; URINE MARIJUANA (THC) SCREEN NEGATIVE; URINE METHADONE SCREEN NEGATIVE; URINE PHENCYCLIDINE SCREEN NEGATIVE
[2019-01-25] MEDS ORDERED: LIDOCAINE 1.5%/EPINEPHRINE INJ-PF 30 ML SDV INJ ONE (20:12)
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
[2019-01-25 21:27] VITALS: BP 152/90
== END 2019-01-25 21:58 | disposition home or self-care (01) ==
LOC: ER 15:59
DX: S01.112A Laceration without foreign body of left eyelid and periocular area, initial encounter (principal); T14.8XXA Other injury of unspecified body region, initial encounter; R51 Headache; M54.2 Cervicalgia; R07.9 Chest pain, unspecified; R10.9 Unspecified abdominal pain; Y04.2XXA Assault by strike against or bumped into by another person, initial encounter; F17.200 Nicotine dependence, unspecified, uncomplicated; F14.10 Cocaine abuse, uncomplicated; F12.10 Cannabis abuse, uncomplicated; J44.9 Chronic obstructive pulmonary disease, unspecified; D72.829 Elevated white blood cell count, unspecified
CPT/HCPCS: 99284; 36415; 80307 ×2; 83690; 85025; 85610; 85730; 80053; 81001; 70450; 70486; 71260; 72125; 74177; 12013; J3490

== ENCOUNTER 2019-06-06 13:28 | Emergency (ER) | payer OTHER ==
[2019-06-06] MEDS ORDERED: NICOTINE 14 MG/24 HR PATCH.TD24 TD ONE (14:31)
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
[2019-06-06 15:04] LABS: ABSOLUTE BASOPHILS # (AUTO) 0.1 10^3/uL (0.0-0.2); ABSOLUTE EOSINOPHILS # (AUTO) 0.2 10^3/uL (0.0-0.6); ABSOLUTE LYMPHOCYTES (AUTO) 5.6 10^3/uL (0.5-4.7); ABSOLUTE MONOCYTES (AUTO) 1.6 10^3/uL (0.1-1.4); ABSOLUTE NEUT (AUTO) 6.1 10^3/uL (1.7-8.2); BASOPHILS % (AUTO) 0.7 % (0-2); EOSINOPHILS % (AUTO) 1.7 % (0-6); HEMATOCRIT 39.1 % (37.9-51.0); MEAN CORPUSCULAR HEMOGLOBIN 28.1 pg (27.0-33.4); MEAN CORPUSCULAR HGB CONC 33.2 g/dL (32.0-36.0); MEAN CORPUSCULAR VOLUME 85 fl (80-97); MONOCYTES % (AUTO) 11.5 % (3-13); PLATELET COUNT 497 10^3/uL (150-450); RED BLOOD COUNT 4.61 10^6/uL (4.35-5.55); RED CELL DISTRIBUTION WIDTH 17.9 % (11.5-14.0); SEGMENTED NEUTROPHILS % (AUTO) 45.1 % (42-78); TOTAL CELLS COUNTED % (AUTO) 100 %; WHITE BLOOD COUNT 13.5 10^3/uL (4.0-10.5)
[2019-06-06 15:10] LABS: APPEARANCE,URINE CLEAR; BILIRUBIN,URINE NEGATIVE (NEGATIVE); COLOR,URINE YELLOW; GLUCOSE, URINE NEGATIVE (NEGATIVE); KETONES,URINE NEGATIVE (NEGATIVE); LEUKOCYTE ESTERASE,URINE NEGATIVE (NEGATIVE); NITRITE,URINE NEGATIVE (NEGATIVE); PROTEIN,URINE NEGATIVE (NEGATIVE); URINE SPECIFIC GRAVITY 1.025
--- NOTE | 2019-06-06 15:17 | RADIOLOGY REPORT (SQ) ---
EXAM DESCRIPTION: CT HEAD WITHOUT COMPLETED DATE/TIME: 06/06/2019 3:02 pm REASON FOR STUDY: trauma COMPARISON: 01/25/2019 TECHNIQUE: Axial images acquired through the brain without intravenous contrast. Images reviewed wi th bone, brain and subdural windows. Additional sagittal and coronal reconstructions were generated. Images stored on PACS. All CT scanners at this facility use dose modulation, iterative reconstruction, and/or weight based d osing when appropriate to reduce radiation dose to as low as reasonably achievable (ALARA). [facility]: Dose Right [facility]: CareDose [facility]: Dose Right [facility]: Teradose 4D [facility]: Smart [employer] RADIATION DOSE: CT Rad equipment meets quality standard of care and radiation dose reduction techniq ues were employed. CTDIvol: 53.2 mGy. DLP: 1070 mGy-cm. mGy. LIMITATIONS: None. FINDINGS: VENTRICLES: Normal size and contour. CEREBRUM: No masses. No hemorrhage. No midline shift. No evidence for acute infarction. Normal gra y/white matter differentiation. No areas of low density in the white matter. CEREBELLUM: No masses. No hemorrhage. No alteration of density. No evidence for acute infarction. EXTRAAXIAL SPACES: No fluid collections. No masses. ORBITS AND GLOBE: No intra- or extraconal masses. Normal contour of globe without masses. CALVARIUM: No calvarial fracture. There are facial fractures including bilateral zygomatic arch frac tures and maxillary fractures. Left orbital floor fracture. PARANASAL SINUSES: Extensive mucoperiosteal changes in the maxillary sinuses. SOFT TISSUES: No mass or hematoma. OTHER: No other significant finding. IMPRESSION: No acute intracranial imaging findings. There are facial fractures as described. Sinus disease. EVIDENCE OF ACUTE STROKE: NO. COMMENT: Quality ID # [id number]: Final reports with documentation of one or more dose reduction techniques (e.g., Automated exposure control, adjustment of the mA and/or kV according to patient size, use of iterative reconstruction technique) TECHNICAL DOCUMENTATION: JOB ID: [id number]- All Rights Reserved Reading location - IP/workstation name: [email or web address]
--- NOTE | 2019-06-06 15:27 | RADIOLOGY REPORT (SQ) ---
EXAM DESCRIPTION: CHEST 2 VIEWS COMPLETED DATE/TIME: 06/06/2019 3:08 pm REASON FOR STUDY: trauma COMPARISON: 08/29/2012 EXAM PARAMETERS: NUMBER OF VIEWS: two views TECHNIQUE: Digital Frontal and Lateral radiographic views of the chest acquired. RADIATION DOSE: NA LIMITATIONS: none FINDINGS: LUNGS AND PLEURA: No opacities, masses or pneumothorax. No pleural effusion. MEDIASTINUM AND HILAR STRUCTURES: No masses or contour abnormalities. HEART AND VASCULAR STRUCTURES: Heart normal size. No evidence for failure. BONES: No acute findings. HARDWARE: None in the chest. OTHER: No other significant finding. IMPRESSION: NO ACUTE RADIOGRAPHIC FINDING IN THE CHEST. TECHNICAL DOCUMENTATION: JOB ID: [id number] [employer]- All Rights Reserved Reading location - IP/workstation name: [email or web address]
[2019-06-06 15:32] LABS: URINE AMPHETAMINES SCREEN NEGATIVE; URINE BARBITURATES SCREEN NEGATIVE; URINE BENZODIAZEPINES SCREEN NEGATIVE; URINE MARIJUANA (THC) SCREEN NEGATIVE; URINE METHADONE SCREEN NEGATIVE; URINE PHENCYCLIDINE SCREEN NEGATIVE
[2019-06-06 15:33] LABS: ALKALINE PHOSPHATASE 46 U/L (38-126); ANION GAP 10 (5-19); ASPARTATE AMINO TRANSFERASE 26 U/L (17-59); BILIRUBIN,DIRECT 0.1 mg/dL (0.0-0.4); BILIRUBIN,TOTAL 0.5 mg/dL (0.2-1.3); BLOOD UREA NITROGEN 13 mg/dL (7-20); CALCIUM 9.2 mg/dL (8.4-10.2); CARBON DIOXIDE 27 mmol/L (22-30); CHLORIDE 103 mmol/L (98-107); GLUCOSE 103 mg/dL (75-110); TOTAL PROTEIN 7.1 g/dL (6.3-8.2); URINE COCAINE SCREEN UNCONFIRMED POSITIVE
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
--- NOTE | 2019-06-06 16:02 | RADIOLOGY REPORT (SQ) ---
EXAM DESCRIPTION: CT FACIAL AREA WITHOUT COMPLETED DATE/TIME: 06/06/2019 3:02 pm REASON FOR STUDY: trauma COMPARISON: None. TECHNIQUE: Noncontrasted images through the facial bones and orbits windowed for bone and soft tissu e. Additional coronal and sagittal reconstructed images reviewed. All images stored on PACS. All CT scanners at this facility use dose modulation, iterative reconstruction, and/or weight based d osing when appropriate to reduce radiation dose to as low as reasonably achievable (ALARA). [facility]: Dose Right [facility]: CareDose [facility]: Dose Right [facility]: Teradose 4D [facility]: [employer] RADIATION DOSE: CT Rad equipment meets quality standard of care and radiation dose reduction techniq ues were employed. CTDIvol: 30.4 mGy. DLP: 579 mGy-cm. mGy. LIMITATIONS: None. FINDINGS: FACIAL BONES: Multiple fractures of the anterior and lateral garcía of the maxillary sinuse s. No posterior wall-pterygoid fracture identified mildly comminuted zygomatic arch fractures bilate rally. Oblique left mandibular coronoid process fracture. Temporomandibular joints are normally ali gned bilaterally Left orbital floor fracture with 3 mm medial depression, no evidence for muscle entr apment. No mastoid effusion or fracture of the temporal bone identified. INFERIOR BRAIN: Limited view. No acute findings. OTHER: No other significant finding. IMPRESSION: Multiple fractures of the anterior and lateral garcía of the maxillary sinuses. No poste rior wall-pterygoid fracture identified mildly comminuted zygomatic arch fractures bilaterally. Obliq ue left mandibular coronoid process fracture. Temporomandibular joints are normally aligned bilateral ly Left orbital floor fracture with 3 mm medial depression, no evidence for muscle entrapment. No ma stoid effusion or fracture of the temporal bone identified. TECHNICAL DOCUMENTATION: JOB ID: [id number] [place]-72 Quality ID # [id number]: Final reports with documentation of one or more dose reduction techniques (e.g., Au tomated exposure control, adjustment of the mA and/or kV according to patient size, use of iterative reconstruction technique) 2010 [employer]- All Rights Reserved Reading location - IP/workstation name: [email or web address]
[2019-06-06] MEDS ORDERED: OXYCODONE-ACETAMINOPHEN 5-325 MG TABLET PO ONE (16:38)
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
--- NOTE | 2019-06-06 22:32 | EKG REPORT ---
SEVERITY:- NORMAL ECG - SINUS RHYTHM : Confirmed by: Vivi Alegria MD 06-Jun-2019 22:32:19
[2019-06-06] MEDS ORDERED: IBUPROFEN 600 MG TABLET PO ONE (23:02)
[2019-06-07] MEDS ORDERED: OXYCODONE-ACETAMINOPHEN 5-325 MG TABLET PO PRN (06:13)
--- NOTE | 2019-06-07 10:36 | ER Document Report ---
Doctor's Note Notes: 06/07/19 10:35 Chart reviewed, patient currently medically cleared. Currently awaiting psychiatric recommendations. Patient does have multiple facial fractures for which he will need outpatient follow-up. This has already been established through maxillofacial surgery, see original providers note.
[2019-06-07 12:46] VITALS: BP 122/61
== END 2019-06-07 12:36 | disposition home or self-care (01) ==
LOC: ER 13:28
DX: S02.40EA Zygomatic fracture, right side, initial encounter for closed fracture (principal); S02.40FA Zygomatic fracture, left side, initial encounter for closed fracture; S02.32XA Fracture of orbital floor, left side, initial encounter for closed fracture; S02.632A Fracture of coronoid process of left mandible, initial encounter for closed fracture; F14.20 Cocaine dependence, uncomplicated; R51 Headache; R11.2 Nausea with vomiting, unspecified; R04.0 Epistaxis; Y04.0XXA Assault by unarmed brawl or fight, initial encounter; F17.200 Nicotine dependence, unspecified, uncomplicated; J44.9 Chronic obstructive pulmonary disease, unspecified
CPT/HCPCS: 36415; 70450; 70486; 71046; 72125; 80053; 80307; 81001; 82550; 85025; 93005; 93010; 99284